=== PATIENT | male | born 1980 | race Caucasian/White ===

== ENCOUNTER 2018-01-18 18:58 | Emergency (ER) | payer SELFPAY ==
[2018-01-18 19:42] VITALS: BP 141/86
[2018-01-18] MEDS ORDERED: PROVENTIL IH ONE ×3 (21:03→22:31)
[2018-01-18] MEDS ORDERED: DECADRON IM ONE (21:03)
[2018-01-18] MEDS ORDERED: TYLENOL PO ONE (21:04)
[2018-01-18] MEDS ORDERED: TYLENOL ONE (21:05)
[2018-01-18] MEDS ORDERED: DECADRON ONE (21:05)
--- NOTE | 2018-01-18 21:05 | XRay Report ---
FINAL REPORT PROCEDURE: XR CHEST ROUTINE 2V TECHNIQUE: PA and lateral chest radiographs were obtained. CPT 43913 HISTORY: cough COMPARISON: No prior studies are available for comparison. FINDINGS: Heart: Normal. Mediastinum/Vessels: Normal. Lungs/Pleural space: No infiltrate, effusion, or pneumothorax. Bony thorax: No acute osseous abnormality. Other: IMPRESSION: No pulmonary infiltrate is seen.
--- NOTE | 2018-01-18 21:14 | Emergency Department Report ---
- General Chief Complaint: Upper Respiratory Infection Stated Complaint: FLU LIKE SYMPTOMS Time Seen by Provider: 01/18/18 21:03 Source: patient Mode of arrival: Ambulatory Limitations: No Limitations - History of Present Illness Initial Comments: 37-year-old male comes in today reporting that he was diagnosed with pneumonia yesterday and is being treated. He reports that he is having a productive cough and he had episode of vomiting today after coughing. He reports he's been taken Levaquin and Mucinex promethazine with codeine and ibuprofen. Patient reports he was scared and he wanted to be reevaluated since he had vomited after coughing. MD Complaint: fever, cough -: This afternoon Severity scale (0 -10): 8 Consistency: constant Improves With: cough suppressant Worsens With: other (coughing) Context: new medications Associated Symptoms: fever, cough, shortness of breath, vomiting - Related Data Home Medications Medication Instructions Recorded Confirmed Last Taken Ibuprofen 800 mg PO Q4H PRN 01/18/18 01/18/18 Unknown Levaquin TAB 750 mg PO DAILY 01/18/18 01/18/18 Unknown Mucinex 600 mg PO Q12H 01/18/18 01/18/18 Unknown Promethazine /Codeine 5 ml PO Q4H 01/18/18 01/18/18 Unknown Previous Rx's Medication Instructions Recorded Last Taken Type ALBUTEROL Inhaler [ProAir HFA 2 puff IH QID PRN #1 inhalation 01/18/18 Unknown Rx Inhaler] Allergies Allergy/AdvReac Type Severity Reaction Status Date / Time No Known Allergies Allergy Unverified 01/18/18 19:51 ED Review of Systems ROS: Stated complaint: FLU LIKE SYMPTOMS Other details as noted in HPI Constitutional: fever Eyes: denies: eye pain, eye discharge, vision change ENT: denies: ear pain, throat pain Respiratory: cough, shortness of breath, wheezing Cardiovascular: denies: chest pain, palpitations Endocrine: no symptoms reported Gastrointestinal: denies: abdominal pain, nausea, diarrhea Genitourinary: denies: urgency, dysuria Musculoskeletal: denies: back pain, joint swelling, arthralgia Skin: denies: rash, lesions Neurological: denies: headache, weakness, paresthesias Psychiatric: denies: anxiety, depression Hematological/Lymphatic: denies: easy bleeding, easy bruising ED Past Medical Hx - Past Medical History Previous Medical History?: No - Surgical History Past Surgical History?: No - Social History Smoking Status: Never Smoker Substance Use Type: None - Medications Home Medications: Home Medications Medication Instructions Recorded Confirmed Last Taken Type ALBUTEROL Inhaler [ProAir HFA 2 puff IH QID PRN #1 inhalation 01/18/18 Unknown Rx Inhaler] Ibuprofen 800 mg PO Q4H PRN 01/18/18 01/18/18 Unknown History Levaquin TAB 750 mg PO DAILY 01/18/18 01/18/18 Unknown History Mucinex 600 mg PO Q12H 01/18/18 01/18/18 Unknown History Promethazine /Codeine 5 ml PO Q4H 01/18/18 01/18/18 Unknown History ED Physical Exam - General Limitations: No Limitations General appearance: alert, in no apparent distress - Head Head exam: Present: atraumatic, normocephalic - Eye Eye exam: Present: normal appearance - ENT ENT exam: Present: mucous membranes moist, TM's normal bilaterally - Neck Neck exam: Present: normal inspection - Respiratory Respiratory exam: Present: wheezes. Absent: respiratory distress - Cardiovascular Cardiovascular Exam: Present: regular rate, normal rhythm. Absent: systolic murmur, diastolic murmur, rubs, gallop - GI/Abdominal GI/Abdominal exam: Present: soft, normal bowel sounds - Extremities Exam Extremities exam: Present: normal inspection - Back Exam Back exam: Present: normal inspection - Neurological Exam Neurological exam: Present: alert, oriented X3 - Psychiatric Psychiatric exam: Present: normal affect, normal mood - Skin Skin exam: Present: warm, dry, intact, normal color. Absent: rash ED Course Vital Signs 01/18/18 19:37 Temperature 99.2 F Pulse Rate 85 Respiratory 18 Rate Blood Pressure 141/86 O2 Sat by Pulse 97 Oximetry ED Medical Decision Making - Medical Decision Making Patient's been evaluated by this provider fast track. I discussed with patient that he had some wheezing bilateral that we will give him a nebulizer treatment shot of steroids Tylenol and reevaluate. Discussed the patient he will need to continue with his current medications that he was discharged from the other day. Patient verbalized understanding Critical care attestation.: If time is entered above; I have spent that time in minutes in the direct care of this critically ill patient, excluding procedure time. ED Disposition Clinical Impression: Acute upper respiratory infection Disposition: DC-01 TO HOME OR SELFCARE Is pt being admited?: No Does the pt Need Aspirin: No Condition: Stable Additional Instructions: Please continue all medications as prescribed from yesterday's visit. Please use an inhaler as prescribed. Follow-up with your primary care provider in 3-5 days. Prescriptions: ALBUTEROL Inhaler [ProAir HFA Inhaler] 2 puff IH QID PRN #1 inhalation PRN Reason: Shortness Of Breath Referrals: GIGI HEALY MD [Primary Care Provider] - 3-5 Days Forms: Work/School Release Form(ED)
== END 2018-01-18 22:58 | disposition home or self-care (01) ==
LOC: ED 18:58
DX: J06.9 Acute upper respiratory infection, unspecified (principal)
CPT/HCPCS: 71046; 96372; 99283; J1100